=== PATIENT | male | born 1960 | race Caucasian/White ===

== ENCOUNTER 2018-06-14 17:20 | Emergency (ER) | payer SELFPAY ==
[~2018-06-14] VITALS: Ht 177.8 cm; Wt 77.1 kg
[2018-06-14] MEDS ORDERED: DIPHTH,PERTUSS(ACELL),TET TOX 0.5 ML DISP.SYRIN. VAX IM ONE (17:45)
[2018-06-14 17:54] LABS: BASO # 0.3 x10^3/uL (0.0-0.2); BASO % 4 % (0-3); EOS % 1 % (0-3); HEMATOCRIT 41.1 % (39.0-53.0); LYMPH % 30 % (24-48); MEAN CORPUSCULAR HEMOGLOBIN 30 pg (25-35); MEAN CORPUSCULAR HGB CONC 34 g/dL (31-37); MEAN CORPUSCULAR VOLUME 88 fL (79-100); MONO # 0.7 x10^3/uL (0.0-1.1); MONO % 11 % (0-9); NEUT # 3.7 x10^3uL (1.8-7.7); NEUT % 55 % (31-73); PLATELET COUNT 231 x10^3/uL (140-400); RED BLOOD COUNT 4.68 x10^6/uL (4.30-5.70); RED CELL DISTRIBUTION WIDTH 18.3 % (11.5-14.5); WHITE BLOOD COUNT 6.7 x10^3/uL (4.0-11.0)
--- NOTE | 2018-06-14 17:54 | PHYS DOC ---
Past Medical History Past Medical History: A-Fib, Alcoholism, Hypertension, Seizure Smoking: Cigarettes Alcohol Use: Heavy Drug Use: None Adult General Chief Complaint Chief Complaint: palpitation HPI HPI Patient is a 57 year old male who is in by EMS because of episodes of palpitation for the last 3 days. Patient states he has had heart racing for the last 3 days that presented almost all the time and associated with shortness of breath and dizziness and intermittent episodes of chest pain that sometimes last for a few seconds and sometimes last for longer time as a mild to severe chest pain. Patient states he drinks alcohol daily and had point of was called today. Patient states he had a fall 3 days ago while he was sitting and is not sure if he had the seizure episode or not. Patient states he was told he had episodes of seizures related to alcohol. Patient also was told that he had questionable atrial fibrillation. Patient has history of hypertension, smoking, family history of coronary artery disease. Patient is not up-to-date with tetanus immunization. Review of Systems Review of Systems Constitutional: Denies fever or chills [] Eyes: Denies change in visual acuity, redness, or eye pain [] HENT: Denies nasal congestion or sore throat [] Respiratory: Denies cough or shortness of breath [] Cardiovascular: No additional information not addressed in HPI [] GI: Denies abdominal pain, nausea, vomiting, bloody stools or diarrhea [] : Denies dysuria or hematuria [] Musculoskeletal: Denies back pain or joint pain [] Integument: Denies rash or skin lesions [] Neurologic: Denies headache, focal weakness or sensory changes [] Endocrine: Denies polyuria or polydipsia [] All other systems were reviewed and found to be within normal limits, except as documented in this note. Physical Exam Physical Exam Constitutional: Mild distress, non-toxic appearance, poor hygiene, smell of alcohol on breath. [] HENT: Normocephalic, old contusion of right above eyebrow with crusty material on the face, oropharynx moist. Eyes: PERRLA, EOMI, conjunctiva normal, no discharge. [] Neck: Normal range of motion, no tenderness, supple, no stridor. [] Cardiovascular: Sinus tachycardia, no murmur [] Lungs & Thorax: Bilateral breath sounds clear to auscultation [] Abdomen: Bowel sounds normal, soft, no tenderness, no masses, no pulsatile masses. [] Skin: Warm, dry, no erythema, no rash. [] Back: No tenderness, no CVA tenderness. [] Extremities: No tenderness, no cyanosis, no clubbing, ROM intact, no edema. [] Neurologic: Alert and oriented X 3, normal motor function, normal sensory function, no focal deficits noted. [] Psychologic: Affect anxious, judgement normal, mood normal. [] EKG EKG EKG interpreted by me. EKG at 1729 showed sinus tachycardia at rate of 105, no acute ST and T-wave abnormalities. Radiology/Procedures Radiology/Procedures [] Course & Med Decision Making Course & Med Decision Making Pertinent Labs and Imaging studies are pending. Evaluation of patient in ER showed 57-year-old male patient with history of alcohol abuse and homelessness brought in by EMS because of palpitation and chest pain. Patient treated with 324 mg of aspirin by EMS and denies chest pain at arrival to ER. Labs and chest x-ray is pending. Patient care transferred to Dr. Moon at 1800. Boby Disclaimer Boby Disclaimer This electronic medical record was generated, in whole or in part, using a voice recognition dictation system. Departure Departure Impression: Primary Impression: Chest pain Additional Impressions: Alcohol abuse Homeless Problem Qualifiers Primary Impression: Chest pain Chest pain type: unspecified Qualified Codes: R07.9 - Chest pain, unspecified DELFINA MONTEMAYOR MD Jun 14, 2018 17:54
[2018-06-14 18:03] LABS: PROTHROMBIN TIME PATIENT 12.6 SEC (11.7-14.0)
[2018-06-14 18:12] LABS: CALCIUM 8.4 mg/dL (8.5-10.1); CREATININE 1.1 mg/dL (0.7-1.3); GFR 69.2; POTASSIUM 3.3 mmol/L (3.5-5.1)
[2018-06-14 18:16] LABS: ALBUMIN 3.5 g/dL (3.4-5.0); ALBUMIN/GLOBULIN RATIO 0.8 (1.0-1.7); MAGNESIUM 1.2 mg/dL (1.8-2.4); TOTAL BILIRUBIN 0.5 mg/dL (0.2-1.0); TOTAL PROTEIN 7.9 g/dL (6.4-8.2)
--- NOTE | 2018-06-14 18:28 | RAD ---
INDICATION: HEAD INJURY, CHEST PAIN COMPARISON: None. TECHNIQUE: Axial CT images obtained through the head without intravenous contrast. One or more of the following individualized dose reduction techniques were utilized for this examination: 1. Automated exposure control; 2. Adjustment of the mA and/or kV according to patient size; 3. Use of iterative reconstruction technique. FINDINGS: No intracranial hemorrhage. No midline shift. Basal cisterns patent. Ventricles and sulci are unremarkable. No acute osseous abnormality. Bowing of nasal septum. IMPRESSION: 1. No acute intracranial hemorrhage. 2. Scattered foci of low density of the white matter. Nonspecific but can be seen with chronic small vessel ischemic disease. 3. There is some prominence of the subdural space frontally which is low density. Could be secondary to some volume loss or chronic subdural hygroma. Electronically signed by: Michele Milner MD (06/14/2018 6:25 PM) [facility]
[2018-06-14] MEDS ORDERED: MULTIVIT INFUSN,ADULT 4,VIT K 10 ML, THIAMINE INJ 100 MG, FOLIC ACID INJ 1 MG in IV NOR... IV ONE (18:30)
[2018-06-14 18:32] LABS: % BANDS 1 % (0-9); % BASOS 1 % (0-3); % EOS 1 % (0-5); % LYMPHS 26 % (24-48); % MONOS 13 % (0-10); % SEGS 58 % (35-66); PLT ESTIMATE ADEQUATE (ADEQUATE)
[2018-06-14 18:33] LABS: ANISOCYTOSIS SLIGHT; TARGET CELLS OCC
[2018-06-14 19:56] VITALS: BP 136/71
--- NOTE | 2018-06-15 06:40 | EKG ---
[facility] [address] [place] [id number] Test Date: 2018-06-14 Test Time: 17:29:37 Pat Name: JOSSY DELACRUZ Department: Room: Gender: M Environmental Professional: : 1960 Requested By: DELFINA MONTEMAYOR Order Number: [id number] Reading MD: Adrian Gilbert MD Measurements Intervals [place] Rate: 105 P: IN: QRS: 62 QRSD: 86 T: 74 QT: 330 QTc: 440 Interpretive Statements SR NON-SPECIFIC ST/T CHANGES Electronically Signed On 06-17-2018 9:50:08 CDT by Adrian Gilbert MD
--- NOTE | 2018-06-16 08:17 | RAD ---
Chest radiograph 06/14/2018 5:48 PM INDICATION: Chest pain from injury COMPARISON: None available TECHNIQUE: 2 frontal views of the chest are provided. FINDINGS: The cardiomediastinal silhouette is within normal limits. There are no pleural effusions. There is no pulmonary vascular congestion. There is no pneumothorax. The lungs are clear. No significant osseous abnormality is identified. IMPRESSION: No acute cardiopulmonary process. Electronically signed by: Roxanne Agrawal MD (06/16/2018 8:14 AM) [id number]
== END 2018-06-14 20:27 | disposition home or self-care (01) ==
LOC: ER 17:20
DX: R07.89 Other chest pain (principal); R00.2 Palpitations; R00.0 Tachycardia, unspecified; R06.02 Shortness of breath; R42 Dizziness and giddiness; F10.20 Alcohol dependence, uncomplicated; Y90.8 Blood alcohol level of 240 mg/100 ml or more; F17.210 Nicotine dependence, cigarettes, uncomplicated; I48.91 Unspecified atrial fibrillation; Z59.0 Homelessness
CPT/HCPCS: 36415; 70450; 71045; 80053; 82550; 83690; 83735; 83880; 84484; 85007; 85025; 85610; 90471; 90715; 93005; 96365; 99284; G0480; J7030